=== PATIENT | female | born 1975 | race Caucasian/White ===

== ENCOUNTER → 2023-07-12 13:51 | Outpatient (REF) | payer OTHER, SELFPAY | LOC: WDC 13:51 | PROVIDERS: ATTENDING PHYSICIAN Obstetrics & Gynecology; FAMILY PHYSICIAN Family Medicine | DX: Z12.31 Encounter for screening mammogram for malignant neoplasm of breast (principal) | CPT/HCPCS: 77063; 77067 ==

== ENCOUNTER → 2023-07-18 10:05 | Outpatient (REF) | payer OTHER, SELFPAY | LOC: WDC 10:05 | PROVIDERS: ATTENDING PHYSICIAN Obstetrics & Gynecology; FAMILY PHYSICIAN Family Medicine | DX: R92.8 Other abnormal and inconclusive findings on diagnostic imaging of breast (principal) | CPT/HCPCS: 76642 ==

== ENCOUNTER 2023-10-30 18:18 | Emergency (ER) | payer OTHER, SELFPAY ==
[2023-10-30 18:23] VITALS: BP 125/75
[2023-10-30 18:41] VITALS: BMI 25.4
[2023-10-30 18:44] VITALS: BP 109/54
--- NOTE | 2023-10-30 18:48 | ED.GENMED ---
History of Present Illness
General
Chief Complaint: Abdominal Pain
Time Seen by Provider: 10/30/23 18:45
Travel History
Have you had any contact with someone who has COVID-19?: No
Do you have any symptoms of coronavirus? Fever > 100 degrees, chills, cough, shortness of breath, sore throat, loss of taste or smell, muscle aches, or headache?: No
History of Present Illness
History of Present Illness:
48-year-old female with history of IBS and hyperlipidemia presents to the emergency department for evaluation of upper abdominal pain that began late last night and worsened throughout the day today. The pain does not worsen after eating or
drinking, describes a colicky pain that is nonradiating. No fevers or chills. Denies any vomiting or diarrhea. She has not take any medication for pain control. Prior abdominal surgery includes abdominoplasty
Past History
Past History
ED Past Medical History: None
ED Past Surgical History: Gynecological (ectopic on r)
Social History
Tobacco: Non-smoker
Personal:
Review of Systems
Review of Systems
Allergies reviewed?: Yes
All Other Systems: ROS reviewed and negative except as documented in HPI and ROS
Phy Exam
Physical Exam
Physical Exam:
GEN: Well appearing, NAD, WDWN
HEENT: Oral mucosa moist, no scleral icterus
Cardiac: Regular rate
Lung: No respiratory distress, no tachypnea
Abdomen: Soft, focal tenderness to the epigastrium, negative Bee sign, no rigidity
MSK: No gross deformity or injuries
Skin: Good color, no pallor or jaundice, no rashes
Neuro: AO x3, moves all extremities freely
Psych: Calm, cooperative
Course
Orders/Labs/Results
Orders:
Orders
10/30/23 18:51
Complete Blood Count/With Diff Urgent
Comprehensive Metabolic Panel Urgent
HCG, Serum Qualitative Screen Urgent
Comment: ADD ON
Lipase Urgent
Urinalysis Reflex To Culture Urgent
Date Specimen was Collected: 10/30/23
Time Specimen was Collected: 18:47
Urine Microscopic Reflex Cult Urgent
Urine Culture Urgent
LUISANA Source: U
Specimen Description:
Date Specimen was Collected: 10/30/23
Time Specimen was Collected: 18:47
10/30/23 19:03
Add On- LAB Urgent
Tests Added?: HCG qual
US Abdomen Complete/Upper Urgent
Comment:
Reason For Exam: epigastric pain
10/30/23 20:00
Dicyclomine HCl [Bentyl] 20 mg IM NOW STA
Abnormal Lab Results
10/30/23
18:51
RBC 4.10 L 10^6/uL
(4.20-5.40)
MCH 31.5 H pg
(27.0-31.0)
Absolute Monos (auto) 0.7 H 10^3/uL
(0.1-0.6)
Leukocyte Esterase Rfl Trace A
(Negative)
Urine Bacteria (Reflex) Many A
(Negative)
10/30/23 18:51
10/30/23 18:51
Vital Signs
Initial and Last Documented VS:
Initial Vital Signs
Temp Pulse Resp BP Pulse Ox
98.3 F 66 18 125/75 99
10/30/23 18:23 10/30/23 18:23 10/30/23 18:23 10/30/23 18:23 10/30/23 18:23
Last Documented Vital Signs
Temp Pulse Resp BP Pulse Ox
98.3 F 67 16 103/86 100
10/30/23 18:23 10/30/23 18:53 10/30/23 18:53 10/30/23 19:00 10/30/23 19:02
MDM/Problems Addressed
MDM/Problems Addressed:
Patient's labs are reassuring ultrasound shows no evidence for biliary disease. She does note that she was previously on Mounjaro but has not taken this for greater than a week for food last night that she typically does. This could be a gastritis
over distention of the stomach in the setting of recent GLP-1 agonist use. Discussed supportive care. No indication for CT from my standpoint
*Critical Care Note
Total Time (30-74mins, 75-104mins- exclusive of procedures): Not Applicable
ED Attending Note
-
Portions of this chart may have been created with voice recognition software.� Occasional wrong word or��sound alike� substitutions may have occurred due to the inherent limitations of voice recognition software.
Discharge Plan
Departure
Patient Disposition: Home (Routine Discharge)
Date of Disposition: 10/30/23
Time of Disposition: 20:14
Patient with high blood pressure during this ER visit?: No
Discharge Problem:
Acute epigastric pain
Instructions: Abdominal Pain
Prescriptions:
New
dicyclomine 20 mg tablet
20 mg PO TID PRN (Reason: abdominal pain) Qty: 20 0RF
No Action
rosuvastatin 5 MG tablet
5 mg PO QPM
fluticasone propionate 1 SPRAY spray,suspension
1 spray intranasal DAILY
cetirizine 10 MG tablet
10 mg PO HS
levothyroxine 50 MCG tablet
50 mcg PO DAILY AT 0700
lorazepam 0.5 MG tablet
0.5 mg PO PRN PRN (Reason: Anxiety)
doxycycline hyclate 100 MG capsule
100 mg PO BID
Patient Comments:
took it twice 09/14/21 but did not take it this am because it made patient nauseated
Lactobacillus acidophilus [Probiotic] 1 EACH capsule
2 tab PO DAILY
Collagen
1 scoop PO DAILY
Referrals:
NONE,* [Active] -
Interventions
Interventions:
*Risk Screen - Suicide Last Done: 10/30/23 18:23
*General Assessment Last Done: 10/30/23 18:23
*Neglect/Abuse Screening Last Done: 10/30/23 18:36
ED- Fall Risk Assessment Last Done: 10/30/23 18:41
*ED COVID-19 Vaccine History Last Done: 10/30/23 18:36
*Nursing Disposition Last Done: 10/30/23 20:25
[facility] Assessment Last Done: 10/30/23 18:54
Discharge Date and Time
Discharge Date/Time: 10/30/23 20:25
Print Language: SWEDISH
[2023-10-30 18:59] LABS: % Basophils 1.3 % (0-2); % Eosinophils 4.2 % (0-6); % Immature Granulocytes 0.1 % (0-0.5); % Lymphocytes 32.2 % (20.5-51.1); % Monocytes 9.1 % (1.7-9.3); % Neutrophils 53.1 % (42.2-75.2); Absolute Basophils 0.1 10^3/uL (0-0.2); Absolute Eosinophils 0.3 10^3/uL (0-0.7); Absolute Lymphocytes 2.5 10^3/uL (1.2-3.4); Absolute Monocytes 0.7 10^3/uL (0.1-0.6); Absolute Neutrophils 4.1 10^3/uL (1.4-6.5); Hematocrit 38.5 % (37.0-47.0); Hemoglobin 12.9 g/dL (12.0-16.0); Mean Corp Hgb Conc. 33.5 g/dL (33.0-37.0); Mean Corpuscular Hgb 31.5 pg (27.0-31.0); Mean Corpuscular Volume 93.9 fL (81.0-99.0); Mean Platelet Volume 9.9 fL (7.4-10.4); Nucleated Red Blood Cells % 0 %; Platelet Count 339 10^3/uL (130-400); Red Cell Dist. Width 12.1 % (11.5-14.5); White Blood Cell Count 7.8 10^3/uL (4.8-10.8)
[2023-10-30 19:00] VITALS: BP 103/86
[2023-10-30 19:04] LABS: Urine Albumin Negative (Neg - Trace); Urine Bilirubin Negative (Negative); Urine Character Clear (Clear); Urine Color Yellow; Urine Glucose Negative (Negative); Urine Ketone Negative (Negative); Urine Leukocyte Trace (Negative); Urine Nitrite Negative (Negative); Urine Occult Blood Negative (Negative); Urine Specific Gravity 1.015 (<1.030); Urine Urobilinogen Negative (Neg - 1+)
[2023-10-30 19:10] LABS: Urine Red Blood Cell 0-2 /HPF (0-2); Urine Squamous Cell 26-30 /LPF (Few); Urine White Cell 0-2 /HPF (0-5)
[2023-10-30 19:11] LABS: Urine Bacteria Many (Negative)
[2023-10-30 19:13] LABS: ALT (SGPT) < 10 U/L (0-35); AST (SGOT) 24 U/L (14-36); Albumin 4.3 g/dl (3.5-5.0); Alkaline Phosphatase 49 U/L (38-126); Blood Urea Nitrogen 14 mg/dl (7-17); Calcium 9.2 mg/dl (8.4-10.2); Carbon Dioxide 25 mmol/L (22-30); Chloride 106 mmol/L (98-107); Estimated Creatinine Clearance 61 ml/min; Glucose 90 mg/dl (70-99); Lipase 73 U/L (23-300); Potassium 4.1 mmol/L (3.5-5.1); Sodium 138 mmol/L (135-145); Total Bilirubin 0.5 mg/dl (0.2-1.3); eGFR > 60.00
[2023-10-30 19:24] LABS: HCG, Serum Qualitative Screen Negative
[2023-10-30] MEDS: BENTYL 20 MG IM (20:08)
== END 2023-10-30 20:25 | disposition home or self-care (01) ==
LOC: EMR 18:18
PROVIDERS: Physician Assistant; EMERGENCY PHYSICIAN Emergency Medicine
DX: R10.13 Epigastric pain (principal); E78.00 Pure hypercholesterolemia, unspecified; K58.9 Irritable bowel syndrome, unspecified
CPT/HCPCS: 99284; 96372; 76700; 80053; 81003; 81015; 83690; 84703; 85025; 87086

== ENCOUNTER → 2023-12-18 07:55 | Outpatient (REF) | payer OTHER, SELFPAY | LOC: WDC 07:55 | PROVIDERS: ATTENDING PHYSICIAN Obstetrics & Gynecology; FAMILY PHYSICIAN Family Medicine | DX: R92.8 Other abnormal and inconclusive findings on diagnostic imaging of breast (principal); R93.89 Abnormal findings on diagnostic imaging of other specified body structures | CPT/HCPCS: 76642 ==

== ENCOUNTER → 2024-03-10 12:38 | Outpatient (REF) | payer OTHER, SELFPAY | LOC: RAD 12:38 | PROVIDERS: ATTENDING PHYSICIAN Nurse Practitioner Family; FAMILY PHYSICIAN Family Medicine | DX: M79.642 Pain in left hand (principal) | CPT/HCPCS: 73110; 73130 ==

== ENCOUNTER → 2025-01-23 14:15 | Outpatient (REF) | payer OTHER, SELFPAY | LOC: WDC 14:15 | PROVIDERS: ATTENDING PHYSICIAN Student in an Organized Health Care Education/Training Program; FAMILY PHYSICIAN Family Medicine | DX: N60.01 Solitary cyst of right breast (principal) | CPT/HCPCS: 76642; 77063; 77067 ==

== ENCOUNTER → 2025-03-02 16:13 | Outpatient (REF) | payer OTHER, SELFPAY | LOC: MRI 3T 16:13 | PROVIDERS: ATTENDING PHYSICIAN Specialist; FAMILY PHYSICIAN Family Medicine | DX: L76.34 Postprocedural seroma of skin and subcutaneous tissue following other procedure (principal); T85.43XA Leakage of breast prosthesis and implant, initial encounter; Z98.82 Breast implant status | CPT/HCPCS: 77049; A9585 ==

== ENCOUNTER 2025-03-18 06:01 | Day surgery (SDC) | payer SELFPAY ==
[2025-03-18] VITALS (8 sets, daily range): BP systolic 104–151; BP diastolic 60–94; BMI 24.5
[2025-03-18] MEDS: TRANSDERM-SCOP 1 PATCH TRANSDERM (08:07)
[2025-03-18] MEDS: TYLENOL 1000 MG PO (08:07)
[2025-03-18] MEDS: NORMOSOL-R/PLASMALYTE-A 1000 IV (08:08)
[2025-03-18 08:18] LABS: HCG, Urine Qualitative Screen Negative
--- NOTE | 2025-03-18 14:36 | W.IMMPOSTOP ---
Surgical Immed Post Op Note
-
Primary Surgeon: ISSAC Blount MD
Assisting Surgeon:
Pre-op Diagnosis: History of breast implants
Post-op Diagnosis: Same
Procedure Performed: Bilateral breast implant removal, bilateral partial capsulectomies, bilateral mastopexies
Anesthesia Type: General
Specimen / Cultures: Left and right breast tissue, left and right capsules
Estimated Blood Loss: 15 cc
Complications: None
Operative Findings: As expected
--- NOTE | 2025-03-18 14:36 | OR.RPT ---
Operative Report
Operative Report
Date of surgery: 03/18/2025
Surgeon: ISSAC Blount MD
Preoperative diagnosis:
1. History of bilateral breast implants
2. History of bilateral textured implants
Postoperative diagnosis: Same
Procedure:
1. Bilateral removal of textured silicone gel breast implants
2. Bilateral partial capsulectomies, breast
3. Bilateral mastopexies
Anesthesia: General
Complications: None
EBL: 15 cc
Specimens:
Left and right breast capsules, left and right breast tissue and skin
Explants: Bilateral silimed textured silicone gel implants, low-profile
Indication for procedure: Patient is a 49-year-old female with a history of bilateral breast augmentation. She presented with concerns over the history of textured breast implants, potential for BII, and imaging showing periprosthetic fluid. A
long conversation was had about RL ALCL associated symptoms treatment and diagnosis. Insufficient fluid was present in the periprosthetic space to allow for cytology testing. Furthermore, definitive diagnosis would be performed by sending the
capsule to pathology for evaluation. Fluid likely represented a normal finding with longstanding implants. She did not have any gross asymmetry or new onset effusions. No evidence of capsular contracture. The patient desired removal of her
bilateral breast implants without replacement. We had a conversation about options including mastopexy, fat grafting as well as reinsertion of a new implant. She elected to proceed with bilateral explant with partial capsulectomy and bilateral
mastopexy. In a joint decision making we agreed that partial capsulectomy would be performed to prevent additional morbidity that may be unnecessary. That said should the capsule appear abnormal or thickened, a complete capsulectomy would be
performed. Risks of the procedure reviewed at length including scarring, asymmetry, seroma, hematoma, changes to sensitivity, breast volume changes. She understood the scar burden and the use of drains. She understood these risks and desire to
proceed
Procedure in detail: Patient was identified preop and the surgical site was confirmed to be the bilateral breast. All questions were answered and consents were confirmed. Patient was marked in the upright position and a vertical mastopexy pattern
with the horizontal wedge extension. Patient was taken back to the operating and placed supine on the table. Anesthesia was induced the patient was prepped and draped in usual sterile fashion using ChloraPrep solution. Timeout for patient safety
was performed was confirmed that preoperative antibiotics have been administered and bilateral SCDs were in place. Procedure began with the injection 1% lidocaine with epinephrine in the bilateral proposed incisions. 15 blade was used to make a
vertical incision at the prior scar below the nipple dissection continued with Bovie electrocautery down to the implant capsule. The anterior surface of the implant capsule was dissected free superficially and then a capsulotomy was performed. A
small volume of plain serous fluid was encountered. The capsule itself was very thin and regular in appearance. No abnormalities were noted. A round low-profile Silla med textured implant was removed intact. The remainder of the implant capsule
was inspected and the anterior capsulectomy completed. This capsule was then sent for pathology. Meticulous hemostasis was ensured and Marcaine blocks were performed. 15 Swiss Berry drain was left in the space and sutured in with a 2-0 Prolene.
The bilateral nipples have been marked with a 42 mm cookie cutter and these incisions were incised with a 15 blade. Tailor tacking then took place with the breast lift markings to ensure adequate correction. Patient was flexed at the waist and
evaluated. Markings were adjusted as needed and patient was returned supine. The skin was de-epithelialized and medial and lateral pillars were created to complete the vertical lift. A horizontal wedge was excised. The wounds were all closed in
layers with a series of 2-0 Vicryl's deep in the medial lateral pillars and 3-0 and 4-0 Monocryl superficially. Attention was then drawn to the left side where the exact same procedure was performed. Nipple was marked with a cookie cutter,
vertical incision was made at the prior scar below the nipple and dissection continued with Bovie electrocautery to the implant capsule. The superficial surface of the capsule was dissected free and a capsulotomy was performed. A low-profile Silla
med textured implant was removed intact. Small volume of serous fluid was encountered. The capsule itself looks thin and normal in appearance. The anterior capsulectomy was then performed and meticulous hemostasis was ensured thereafter. A drain
was placed in the space and Marcaine blocks were performed. The left side was similarly tailor tacked and the patient was then flexed to evaluate for symmetry. The markings were adjusted accordingly the patient was returned supine. The residual
incisions were then made with a 15 blade and the lift was de-epithelialized. Horizontal wedge was also removed on this side. The right side was larger so less tissue was removed from the left. All tissue was sent for pathology. The wound was
then closed in layers with 2-0 Vicryl deep and the pedicle followed by 3-0 and 4-0 Monocryl. The nipple showed evidence of well perfusion at the end of the case. Wounds were dressed the patient was extubated taken the PACU further care. All
counts were correct at the end the case and was performed without complication.
== END 2025-03-18 14:15 | disposition home or self-care (01) ==
LOC: SDS 06:01
PROVIDERS: ATTENDING PHYSICIAN Surgery Plastic and Reconstructive Surgery
DX: Z41.1 Encounter for cosmetic surgery (principal); N60.32 Fibrosclerosis of left breast; N60.31 Fibrosclerosis of right breast; Z98.82 Breast implant status
CPT/HCPCS: 19316; 19371; 19370; 81025; 88304; 88305; C1729; L8000